=== PATIENT | female | born 1950 | race Two or more races ===

== ENCOUNTER 2017-01-31 23:08 | Emergency (ER) | payer OTHER ==
[~2017-01-31] VITALS: Ht 154.9 cm; Wt 62.0 kg
[2017-01-31 23:12] VITALS: Ht 154.9 cm; Wt 62.0 kg
[2017-02-01] MEDS ORDERED: SOD CHLORIDE 0.9% 500 ML IV STA (04:21)
--- NOTE | 2017-02-01 05:09 | RADRPT ---
PROCEDURE: Chest. CLINICAL INDICATION: Chest pain. TECHNIQUE: Single frontal view of the chest was obtained. COMPARISON: 10/06/2014. FINDINGS: The cardiac silhouette is within normal limits. The aortic arch is unremarkable. There is no focal consolidation, vascular congestion or pleural effusion. There is no pneumothorax. IMPRESSION: No evidence for active cardiopulmonary disease. .Keaton Gallegos MD, MD Date Time Electronically viewed and signed by .Keaton Gallegos MD, on 02/01/2017 05:09 .T/
[2017-02-01 05:12] LABS: ADD SCAN DIFF NO
[2017-02-01 05:14] LABS: BASOPHILS % 0.2 % (0.0-2.0); EOSINOPHILS # 0.1 10^3/ul (0.0-0.5); EOSINOPHILS % 0.7 % (0.0-7.0); HEMATOCRIT 38.8 % (37.0-47.0); HEMOGLOBIN 13.6 g/dl (12.0-16.0); LYMPHOCYTES # 1.6 10^3/ul (0.8-2.9); MEAN CORPUSCULAR HEMOGLOBIN 30.1 pg (29.0-33.0); MEAN CORPUSCULAR HGB CONC 35.1 g/dl (32.0-37.0); MEAN CORPUSCULAR VOLUME 85.8 fl (82.0-101.0); MEAN PLATELET VOLUME 10.7 fl (7.4-10.4); MONOCYTE # 0.5 10^3/ul (0.3-0.9); MONOCYTES % 5.4 % (0.0-11.0); NEUTROPHIL # 7.3 10^3/ul (1.6-7.5); NEUTROPHILS % 76.3 % (39.0-77.0); PLATELET COUNT 241 10^3/UL (140-415); RED BLOOD COUNT 4.52 10^6/ul (4.20-5.40); RED CELL DISTRIBUTION WIDTH 12.2 % (11.5-14.5); WHITE BLOOD COUNT 9.6 10^3/ul (4.8-10.8)
[2017-02-01 05:31] LABS: INR 0.96; PROTIME 12.8 Sec (12.2-14.2)
[2017-02-01 05:32] LABS: PARTIAL THROMBOPLASTIN TIME 27.1 Sec (25.0-35.0)
[2017-02-01 05:33] LABS: ALANINE AMINOTRANSFERASE 36 IU/L (13-69); ALBUMIN 4.8 g/dl (3.3-4.9); ALBUMIN/GLOBULIN RATIO 1.84; ALKALINE PHOSPHATASE 70 IU/L (42-121); ANION GAP 15 (8-16); ASPARTATE AMINO TRANSFERASE 22 IU/L (15-46); BILIRUBIN,INDIRECT 0.9 mg/dl (0-1.1); BILIRUBIN,TOTAL 0.9 mg/dl (0.2-1.3); BLOOD UREA NITROGEN 4 mg/dl (7-20); CALCIUM 8.8 mg/dl (8.4-10.2); CARBON DIOXIDE 23 mmol/L (21-31); CHLORIDE 97 mmol/L (97-110); CREATININE 0.67 mg/dl (0.44-1.00); GLUCOSE 115 mg/dl (70-220); POTASSIUM 3.9 mmol/L (3.5-5.1); SODIUM 131 mmol/L (135-144); TOTAL PROTEIN 7.4 g/dl (6.1-8.1)
[2017-02-01 05:45] LABS: B-TYPE NATRIURETIC PEPTIDE 364 PG/ML (0-125)
--- NOTE | 2017-02-01 05:55 | ERA ---
ER Documentation Chief Complaint Date/Time DATE: 02/01/17 TIME: 05:54 Chief Complaint WEAKNESS X 20 MIN, AMBULATORY ON SCENE, NO OTHER SX HPI 66-year-old female complains of chest pain and weakness for 20 minutes. The pain is mild to moderate intensity. No nausea no vomiting fevers no chills. No shortness of breath. No other current complaints. ROS All systems reviewed and are negative except as per history of present illness. Medications Home Meds No Active Prescriptions or Reported Meds Allergies Allergies: Coded Allergies: No Known Allergies (Verified Allergy, Mild, 10/06/14) PMhx/Soc History of Surgery: No Anesthesia Reaction: No Hx Neurological Disorder: No Hx Respiratory Disorders: No Hx Cardiac Disorders: No (AFIB, "palpitations, arrhythmia") Hx Psychiatric Problems: No Hx Miscellaneous Medical Probl: No Hx Alcohol Use: No Hx Substance Use: No Hx Tobacco Use: No Smoking Status: Never smoker Physical Exam Vitals Vital Signs Date Time Temp Pulse Resp B/P Pulse Ox O2 Delivery O2 Flow Rate FiO2 02/01/17 04:23 Nasal Cannula 3 02/01/17 04:18 60 17 158/75 100 Room Air 01/31/17 23:12 98.1 59 18 157/73 100 Physical Exam Const: [] Head: Atraumatic Eyes: Normal Conjunctiva ENT: Normal External Ears, Nose and Mouth. Neck: Full range of motion..~ No meningismus. Resp: Clear to auscultation bilaterally Cardio: Regular rate and rhythm, no murmurs Abd: Soft, non tender, non distended. Normal bowel sounds Skin: No petechiae or rashes Back: No midline or flank tenderness Ext: No cyanosis, or edema Neur: Awake and alert Psych: Normal Mood and Affect Result Diagram: 02/01/17 0450 Results 24 hrs Laboratory Tests Test 02/01/17 04:50 White Blood Count 9.610^3/ul Red Blood Count 4.5210^6/ul Hemoglobin 13.6g/dl Hematocrit 38.8% Mean Corpuscular Volume 85.8fl Mean Corpuscular Hemoglobin 30.1pg Mean Corpuscular Hemoglobin Concent 35.1g/dl Red Cell Distribution Width 12.2% Platelet Count 50362^3/UL Mean Platelet Volume 10.7fl Neutrophils % 76.3% Lymphocytes % 17.0% Monocytes % 5.4% Eosinophils % 0.7% Basophils % 0.2% Nucleated Red Blood Cells % 0.0/100WBC Neutrophils # 7.310^3/ul Lymphocytes # 1.610^3/ul Monocytes # 0.510^3/ul Eosinophils # 0.110^3/ul Basophils # 0.010^3/ul Nucleated Red Blood Cells # 0.010^3/ul Prothrombin Time 12.8Sec Prothrombin Time Ratio 1.0 INR International Normalized Ratio 0.96 Activated Partial Thromboplast Time 27.1Sec Current Medications Medications (Trade) Dose Ordered Sig/Janeth Route PRN Reason Start Time Stop Time Status Last Admin Dose Admin Sodium Chloride (NS) 500 ml @ 500 mls/hr Q1H STAT IV 02/01/17 04:21 02/01/17 05:20 DC 02/01/17 04:38 Procedures/MDM EKG: Rate/Rhythm: Normal Sinus Rhythm QRS, ST, T-waves: No changes consistent w/ acute ischemia Impression: No evidence of ischemia or arrhythmia Chest X-ray 1V Interpreted by me: Soft Tissue: No acute abnormalities Bones: No acute abnormalities Mediastinum/Cardiac Silhouette/Lungs: No acute abnormalities Patient's symptoms are concerning for cardiac cause will require inpatient workup and continuous monitoring. Further w/u for ischemia, arrhythmia, PE or dissection will be deferred to the inpatient team. Accepting Care Team: Current data and ongoing care discussed. Time: 5:55 AM Primary Provider: Patient to be transferred to [facility] Consulting: [XOXOXO] Outstanding Data: none Departure Diagnosis: Primary Impression: Chest pain Qualified Code: R07.9 - Chest pain, unspecified type Condition: Serious JOSELITO GARZA Feb 01, 2017 05:55
[2017-02-01 05:59] LABS: TROPONIN-I < 0.012 ng/ml (0.00-0.12)
[2017-02-01 07:00] VITALS: BP 126/72; PULSE 55; RESP 14; TEMP 97.8
== END 2017-02-01 07:11 | disposition home or self-care (01) ==
LOC: E/R 23:08
DX: R07.9 Chest pain, unspecified (principal)
CPT/HCPCS: 71010; 80053; 83880; 84484; 85025; 85610; 85730; 93005; 99285; J7040